=== PATIENT | female | born 1960 | race Caucasian/White ===

== ENCOUNTER 2018-11-24 16:16 | Emergency (ER) | payer MEDICAID ==
[~2018-11-24] VITALS: Ht 162.6 cm; Wt 71.0 kg
[2018-11-24] MEDS ORDERED: DIATR MEGLU/DIATRIZOATE SOLN 30ML ONE (21:11)
[2018-11-24 21:45] LABS: BASOPHILS % 0.5 % (0.0-2.0); EOSINOPHILS % 1.4 % (0.0-5.0); HEMATOCRIT. 35.1 % (36.0-48.0); HEMOGLOBIN. 12.5 g/dL (12.0-16.0); LYMPHOCYTES % 30.2 % (20.0-50.0); MEAN CORPUSCULAR HEMOGLOBIN 32.5 pg (28.0-32.0); MEAN CORPUSCULAR VOLUME 91.5 fL (81.0-99.0); MEAN PLATELET VOLUME 9.1 fl (7.4-10.4); MONOCYTES % 7.7 % (2.0-8.0); NEUTROPHILS % 60.2 % (40.0-76.0); PLATELET 247 x1000/uL (130-400); RED BLOOD CELL COUNT 3.83 mill/uL (4.2-5.4); RED CELL DISTRIBUTION WIDTH 13.1 % (11.6-14.6)
[2018-11-24 21:48] LABS: CHLORIDE 105 mEq/L (98-107)
[2018-11-25 00:11] VITALS: BP 140/66
[2018-11-25] MEDS ORDERED: ACETAMINOPHEN 500MG TABLET PO ONE (00:30)
[2018-11-25] MEDS ORDERED: IOHEXOL-300 100 ML BOTTLE ONE (09:32)
== END 2018-11-25 01:15 | disposition home or self-care (01) ==
LOC: ER 16:16
DX: N28.89 Other specified disorders of kidney and ureter (principal); K57.90 Diverticulosis of intestine, part unspecified, without perforation or abscess without bleeding; K42.9 Umbilical hernia without obstruction or gangrene; M54.5 Low back pain; I10 Essential (primary) hypertension; Z90.710 Acquired absence of both cervix and uterus
CPT/HCPCS: 36415; 74177; 80048; 85025; 99284; Q9963; Q9967; Z7610